=== PATIENT | male | born 2000 | race Caucasian/White ===

== ENCOUNTER 2023-11-24 14:12 | Outpatient (CLI) | payer OTHER ==
--- NOTE | 2023-11-24 15:05 | Sleep Patient Instructions ---
Sleep Center Visit Summary - Patient Visit Information Reason for Visit: Initial consultation - Patient Instructions Additional Instructions: You will be completing a sleep study, either an in-lab polysomnography (PSG) or home sleep study (HST). You will follow-up in the sleep care office after the sleep study is completed to hear the results and talk about therapy, if needed. You will be called by our office staff to schedule this appointment, but you may contact us with any questions. - Clinic Information Contact: [facility] [address] [place] [address] [email or web address] T: [phone]
--- NOTE | 2023-11-24 15:09 | SLEEP CARE CONSULTATION ---
Information from patient questionnaire entered by Stephanie Rankin. I have reviewed and concur with the information entered by Stephanie Rankin. This document represents the service I personally performed and the decisions made by me, Mindy Johnson ARNP. History of Present Illness Service Date and Time: 11/24/2023 1412 Reason for Visit: New patient Chief Complaint: reports: Insomnia, Snoring, Excessive daytime sleepiness, Fatigue, Frequent awakenings at night Date of Onset: 2020 Usual bedtime: INSOMNIA/ WORK SCHEDULE MAKES IT FLUCTUATE Time it takes to fall asleep: 1-2HRS Snores at night: Yes Observed to quit breathing while asleep: No Sleeps alone due to snoring: Yes Number of times waking at night: 2-3 Reasons for waking at night: reports: Choking, Snoring, Gasping for air, Bathroom Toss, Turn, or Twitch while sleeping: Yes Recalls having dreams: Yes Usually gets out of bed at: [id number] Feels refreshed in the morning: No Morning headache: No Sleepy or fatigued during the day: Yes Ever fallen asleep while driving: No Takes day naps: No Dreams during day naps: No Prior sleep studies: Yes Year and Where: 04/04/24 [facility] Additional HPI information: I had the pleasure of seeing VIRGIL WERNER today regarding the possibility of him having a sleep disorder. His current complaints are snoring, insomnia, excessive daytime sleepiness, fatigue and frequent night awakenings. He had a previous sleep study done at [facility] in [place] on May 13, 2023. He was diagnosed with mild BROOK with AHI 6.6 and placed on a CPAP. He did not reach compliance and had to return the machine. He moved here and is now wanting to re-qualify for therapy. He says he only used it for 2 weeks but noticed improvement in sleep. His heard "choking" sounds still when using it and he would take his mask off. He says he can take 1-2 hours to fall asleep and then will wake up a few times a night. Sometimes it can take 45 minutes to go back to sleep. He does not wake up feeling refreshed. He is fatigued during the day but does not take naps. - Parasomnia Symptoms Ever been unable to move upon waking from sleep: No Walks in sleep: No Talks in sleep: Yes (mumbles) Ever acted out dreams in sleep: No Ever felt weak in the knees when startled or emotional: No Bothered by creepy, crawly, restless sensations in legs: No Problems with memory or concentration: Yes (concentration is issue) Subjective Initial [place] Sleepiness Scale score: 3 (11/24/23) Past Medical History Past Medical History: reports: Other (BACK JOHNNA, BILATERAL EXTERINSIC EXTENSOR TENOLNOPATHY, CHRONIC STRESS) Social History The patient's occupation is a AM. Patient is and lives in [place]. Have you smoked in the past 12 months: No Cigarettes per day (20/pack): 20 Years of smokin Quit date: 2022 Smoking Pack Years: 2.0 Alcohol use: No Caffeine use: Yes Caffeine amount and frequency: 1 EVERY WORK DAY Family History Family history of sleep disordered breathing: No Allergies and Home Medications Known drug allergies: Yes ( LISTED ) Drug allergies reviewed: Yes Home medication list reviewed: Yes (as listed) Allergy and home medication list: Allergies Penicillins Allergy (Verified 11/24/23 14:15) Home Medications Medication Instructions Recorded Confirmed Last Taken Type Lidocaine [Asperflex] See Rx Instructions .ROUTE .COMPLEX 11/24/23 11/24/23 Unknown History Review of Systems Weight gain over past 5 years: 40 Cardiovascular: denies: high blood pressure Gastrointestinal: denies: heartburn Neurological: denies: headaches Psychiatric: reports: other (CHRONIC STRSS). denies: anxiety, depression, mood disorder Ear/Nose/Throat: reports: tonsillectomy Musculoskeletal: reports: back pain Immunologic: reports: sneezing Physical Exam Vital signs obtained and entered by: STEPHANIE Colin MA Blood Pressure: 149/97 (LEFT ARM) Cuff size: long Heart Rate: 83 O2 Saturation: 98 Height: 5 ft 9 in Weight: 224 lb 3.2 oz Body Mass Index: 33.0 BMI Classification: Obese Neck circumference: 17.5 Mouth and throat: narrow oropharynx Soft palate: long Hard palate: normal Uvula: normal Uvula visualization: 0% Mallampati Class IV Tongue: enlarged in size with teeth reyes on lateral edges Tonsils: absent bilaterally Neck: normal w/o lymphadenopathy or thyromegaly Heart: regular rate and rhythm Lungs: clear bilaterally Impression and Plan 1. Suspected Obstructive Sleep Apnea-Hypopnea Syndrome, as previously diagnosed and as suggested by a history of loud and irregular snoring, gasping or choking in sleep, frequent awakening during the night, unrefreshed sleep, cognitive impairment, and excessive daytime sleepiness. I recommend proceeding to polysomnography to confirm the diagnosis and to assess severity. I obtained agreement to proceed. The pathophysiology of obstructive sleep apnea-hypopnea syndrome was discussed with the patient and health risks of cardiovascular and cerebrovascular disease if not treated. Risks of drowsy driving discussed in detail and patient advised to avoid long distance driving and to black puller at the first sign of drowsiness. Patient agreed to plan. * Schedule polysomnography * Avoid long distance driving or driving when feeling sleepy. * Avoid alcohol, sedative and muscle relaxant around bedtime. * Attempt to lose weight. * Review instructions provided by trained office staff on how to prepare for the sleep study. * Return for follow-up after sleep study completed. Counseling Topics: Weight loss health impact Plan: PSG and follow up Visit Type: In Office Time Spent with Patient (minutes): 24 Provider Statement: I spent 100% of the Face to Face Visit with the patient with greater than 50% spent counseling the patient and coordination of care.
[2023-11-24 15:12] VITALS: BP 149/97; O2SAT 98
== END 2023-11-24 14:13 | disposition home or self-care (01) ==
LOC: SC 14:12
PROVIDERS: ATTEND Nurse Practitioner Family
DX: G47.33 Obstructive sleep apnea (adult) (pediatric) (principal); E66.9 Obesity, unspecified; Z68.33 Body mass index [BMI] 33.0-33.9, adult; Z87.891 Personal history of nicotine dependence
CPT/HCPCS: 99202; 99212

== ENCOUNTER 2023-12-28 20:39 | Outpatient (CLI) | payer OTHER | END 2023-12-28 20:40 | disposition home or self-care (01) | LOC: SC 20:39 | PROVIDERS: ATTEND Nurse Practitioner Family | DX: G47.33 Obstructive sleep apnea (adult) (pediatric) (principal); E66.9 Obesity, unspecified; Z68.33 Body mass index [BMI] 33.0-33.9, adult | CPT/HCPCS: 95810 ==

== ENCOUNTER 2024-01-11 15:52 | Outpatient (CLI) | payer OTHER ==
--- NOTE | 2024-01-11 16:18 | SLEEP CARE CONSULTATION ---
Information from patient questionnaire entered by Stephanie Rankin. I have reviewed and concur with the information entered by Stephanie Rankin. This document represents the service I personally performed and the decisions made by , Mindy Johnson ARNP. History of Present Illness Service Date and Time: 01/11/2024 1552 Initial [place] Sleepiness Scale score: 3 (11/24/23) Current [place] Sleepiness Scale score: 2 (01/11/24) Additional HPI information: VIRGIL WERNER returns for follow up and results of the recently performed polysomnography. The sleep study done on 12/28/23 showed severe obstructive sleep apnea with an average AHI of 39.8 and fauzia oxygen saturation of 77% I explained the pathophysiology behind obstructive sleep apnea. We then spent quite a bit of time discussing different treatment options. For mild obstructive sleep apnea, surgery and oral appliance are alternatives to nasal CPAP therapy but in moderate or severe cases, nasal CPAP is the most effective and reliable treatment. Because apnea is primarily in supine position, then positional management therapy could be effective. Methods discussed such as positioning with pillows, using a T-shirt with tennis balls in the back or commercial products that have a pillow format on back to prevent supine sleep. I reviewed the impact of weight changes on sleep apnea and strongly recommended losing weight. After some discussion, the patient opted to go with the nasal CPAP therapy. Nasal autoCPAP set at 5-15 cmH20 will be ordered with rationale explained. A manual titration study will be ordered if unable to find optimal pressure with office adjustments. I explained how CPAP machine works and what to expect when using the machine. Using CPAP every night in order to get used to it was emphasized. Patient advised to put CPAP mask on before getting into bed so as not to fall asleep without CPAP. The patient was instructed to call the CPAP supplier to discuss any mechanical problem that may occur. If the mask given is uncomfortable or is difficult to keep on through the night even with adjustment, contact the CPAP supplier as many will replace with another mask style if notified before 30 days. If snoring or perceives is not getting enough air or too much air from the machine, notify this office. Patient does not drink alcohol. Patient was cautioned about risks of drowsy driving until sleepiness symptoms resolve. Patient denies drowsy driving. Sleep Study - Results Type of Sleep Study: Polysomnography (COMPLETED 12/28/23) Prior sleep studies: Yes Year and Where: 04/04/24 [facility] Polysomnography/Home Sleep Study results: IMPRESSION: The quality of the study is good. The patient had normal sleep efficiency. The sleep architecture was abnormal for sleep fragmentation and reduced amount of time spent in REM sleep. Respiratory monitoring showed severe obstructive sleep apnea-hypopnea (AHI = 39.8) associated with frequent arousals, oxyhemoglobin desaturation and moderate hypoxia (fauzia oxygen saturation of 77%). Baseline oxygen saturation was normal. The respiratory events occurred more frequently during supine sleep (supine AHI = 78.6; non-supine = 16.61). Snore was very loud in intensity. There was no significant periodic leg movement of sleep. Cardiac rhythm was normal sinus rhythm without significant arrhythmia. No abnormal behavior (parasomnia) observed during the night. Allergies and Home Medications Known drug allergies: Yes (as listed) Drug allergies reviewed: Yes Home medication list reviewed: Yes (no changes) Allergy and home medication list: Allergies Penicillins Allergy (Verified 01/11/24 15:52) Review of Systems Review of systems same as previous: Yes (NO CHANGE) Physical Exam Vital signs obtained and entered by: STEPHANIE Colin MA Blood Pressure: 127/86 (LEFT ARM) Cuff size: long Heart Rate: 86 O2 Saturation: 98 Height: 5 ft 9 in Weight: 226 lb 3.2 oz Body Mass Index: 33.4 BMI Classification: Obese Impression and Plan 1. Obstructive Sleep Apnea-Hypopnea Syndrome, severe, with lowest oxygen saturation of 77%. Obviously this is the cause of the patients symptoms of unrefreshed sleep, and excessive daytime sleepiness. As mentioned above, the patient will be started on nasal autoCPAP therapy with pressure set at 5-15 cmH2 O. A manual titration study will be completed if unable to find optimal treatment pressure with office adjustments. Compliance guidelines also reviewed. A copy of compliance guidelines will be given for reference at check out. Because the apnea is more severe supine, I instructed to avoid sleeping supine using pillow positioning until able to start CPAP use. 2. Hypoxemia, moderate, with a fauzia oxygen saturation of 77% and 34.4 minutes spent under 90%. The baseline oxygen saturation was normal with an average oxyg en saturation of 94%. 3. Obesity, unspecified. Currently patients BMI is 33.4. Obesity increases the risk of apnea, CPAP pressure requirements and overall health risks especially cardiovascular and diabetes. Thus patient is advised to lose weight. * Nasal auto CPAP therapy, pressure at 5-15 cm H2O. * Attempt to lose weight. * Avoid alcohol consumption near bedtime. * Avoid supine sleep until using CPAP. * The patient is again cautioned about driving until sleepiness completely resolves. * Return one month after CPAP obtained. I will assess response to therapy and compliance at that time. Counseling Topics: Weight loss health impact Prescriptions: Auto CPAP Follow up with Sleep Care in: other (compliance visit) Visit Type: In Office Time Spent with Patient (minutes): 20 Provider Statement: I spent 100% of the Face to Face Visit with the patient with greater than 50% spent counseling the patient and coordination of care.
--- NOTE | 2024-01-11 16:19 | Sleep Patient Instructions ---
Sleep Center Visit Summary - Patient Visit Information Reason for Visit: Sleep study follow-up - Patient Instructions Additional Instructions: You are being started on CPAP therapy with pressure setting at 4-15 cmH2O. You will need to call the sleep care office to set up your follow up once you have your CPAP machine to check compliance and response to therapy at that time. You may call the office with any concerns about pressure feeling too low or too much for adjustment, if needed. You should contact DME supplier for any questions or concerns about mask or equipment. Please call office to schedule a follow up appointment in the sleep care office one month after obtaining new device. - Clinic Information Contact: [facility] [address] [place] [address] [email or web address] T: [phone]
[2024-01-11 16:27] VITALS: BP 127/86; O2SAT 98
== END 2024-01-11 15:53 | disposition home or self-care (01) ==
LOC: SC 15:52
PROVIDERS: ATTEND Nurse Practitioner Family
DX: G47.33 Obstructive sleep apnea (adult) (pediatric) (principal); R09.02 Hypoxemia; E66.9 Obesity, unspecified; Z68.33 Body mass index [BMI] 33.0-33.9, adult
CPT/HCPCS: 99212; 99213